=== PATIENT | male | born 2000 | race Caucasian/White ===

== ENCOUNTER 2020-10-17 15:34 | Emergency (ER) | payer OTHER ==
[2020-10-17 15:49] VITALS: BP 144/73; PULSE 75; RESP 16; TEMP 98.2
[2020-10-17] MEDS ORDERED: KETOROLAC 15 MG/ML 1 ML VIAL IM STA (15:59)
--- NOTE | 2020-10-17 17:00 | XR ---
EXAMINATION TYPE: XR foot complete RT DATE OF EXAM: 10/17/2020 COMPARISON: NONE HISTORY: Pain TECHNIQUE: 3 views FINDINGS: The metatarsals are intact. I see no fracture nor dislocation. Joint spaces are normal. The re are no erosions. IMPRESSION: Negative right foot exam. No fracture.
--- NOTE | 2020-10-17 17:11 | ED ---
Lower Extremity Injury HPI - General Chief Complaint: Extremity Injury, Lower Stated Complaint: R Foot pain Time Seen by Provider: 10/17/20 15:50 Source: patient, RN notes reviewed Mode of arrival: ambulatory Limitations: no limitations - History of Present Illness Initial Comments: Patient is a 20-year-old male that presents to the emergency department complaining of right last 3 toe pain. He notes he was pedal border was foot slipped he decided to bail off when he landed on some rocks with his toes curled. He notes that his toes feel numb and tingly. He does have range of motion and sensation in his toes still. He notes that he is able to open her weight and walk on it with just increased pain. He notes pain is approximately 5 while resting in bed. He denied any other complaints or issues. - Related Data Allergies Allergy/AdvReac Type Severity Reaction Status Date / Time No Known Allergies Allergy Verified 10/17/20 15:47 Review of Systems ROS Statement: Those systems with pertinent positive or pertinent negative responses have been documented in the HPI. ROS Other: All systems not noted in ROS Statement are negative. Past Medical History Past Medical History: No Reported History History of Any Multi-Drug Resistant Organisms: None Reported Past Surgical History: Hernia Repair Past Psychological History: No Psychological Hx Reported Smoking Status: Current every day smoker Past Alcohol Use History: None Reported Past Drug Use History: Marijuana General Exam Limitations: no limitations General appearance: alert, in no apparent distress Head exam: Present: atraumatic, normocephalic, normal inspection Eye exam: Present: normal appearance, PERRL, EOMI. Absent: scleral icterus, conjunctival injection, periorbital swelling Neck exam: Present: normal inspection Respiratory exam: Present: normal lung sounds bilaterally. Absent: respiratory distress, wheezes, rales, rhonchi, stridor Cardiovascular Exam: Present: regular rate, normal rhythm, normal heart sounds. Absent: systolic murmur, diastolic murmur, rubs, gallop, clicks Right Foot/Toe exam: Present: tenderness (Over the third fourth and fifth digits.), abrasion (Small abrasions over the MTP joints of the third fourth and fifth digits.). Absent: full ROM (Secondary to pain), swelling, laceration, ecchymosis, deformity, crepitus, dislocation, erythema Neurological exam: Present: alert, oriented X3 Psychiatric exam: Present: normal affect, normal mood Skin exam: Present: warm, dry, intact, normal color. Absent: rash Course Vital Signs 10/17/20 15:47 Temperature 98.2 F Pulse Rate 75 Respiratory 16 Rate Blood Pressure 144/73 O2 Sat by Pulse 99 Oximetry Medical Decision Making - Medical Decision Making 20-year-old male complaining of right third fourth and fifth toe pain after kicking rocks after ailing off a paddle board. X-ray of the right toes, 15 mg of Toradol ordered. X-ray negative for any acute fractures or dislocations. Patient has multiple toe sprains. Case discussed with Dr. Mcmillan, patient can discharge home with follow-up to primary care. - Radiology Data Radiology results: report reviewed, image reviewed Right foot x-ray: Negative right foot exam, no fracture. Disposition Clinical Impression: Toe sprain Disposition: HOME SELF-CARE Condition: Stable Instructions (If sedation given, give patient instructions): Foot Sprain (ED) Additional Instructions: Please return to the Emergency Department if symptoms worsen or any other concerns. Follow-up with primary care as needed. Use as tolerated. Rest ice compress elevate. Take Tylenol and Motrin as needed for pain control. Is patient prescribed a controlled substance at d/c from ED?: No Referrals: Inderjit Pereira MD [Primary Care Provider] - 1-2 days Time of Disposition: 17:11
== END 2020-10-17 17:48 | disposition home or self-care (01) ==
LOC: EC 15:34
DX: S93.504A Unspecified sprain of right lesser toe(s), initial encounter (principal); F17.200 Nicotine dependence, unspecified, uncomplicated; F12.90 Cannabis use, unspecified, uncomplicated; V93.38XA Fall on board other unpowered watercraft, initial encounter
CPT/HCPCS: 73630; 99284; J1885